=== PATIENT | female | born 1980 | race Caucasian/White ===

== ENCOUNTER → 2023-07-04 19:05 | Outpatient (REF) | payer BC, SELFPAY | LOC: MRI 3T 19:05 | PROVIDERS: ATTENDING PHYSICIAN Specialist; FAMILY PHYSICIAN Physician Assistant | DX: D13.4 Benign neoplasm of liver (principal) | CPT/HCPCS: 74183; A9581 ==

== ENCOUNTER → 2023-08-05 09:24 | Outpatient (REF) | payer BC, SELFPAY ==
[2023-08-05 13:45] LABS: ALT (SGPT) 26 U/L (0-35); AST (SGOT) 23 U/L (14-36); Albumin 4.2 g/dl (3.5-5.0); Alkaline Phosphatase 61 U/L (38-126); Blood Urea Nitrogen 11 mg/dl (7-17); Calcium 9.8 mg/dl (8.4-10.2); Carbon Dioxide 25 mmol/L (22-30); Chloride 103 mmol/L (98-107); Glucose 96 mg/dl (70-99); Magnesium 1.7 mg/dl (1.6-2.3); Potassium 4.3 mmol/L (3.5-5.1); Sodium 136 mmol/L (135-145); Total Bilirubin 0.4 mg/dl (0.2-1.3); Total Protein 6.8 g/dl (6.3-8.2); eGFR > 60.00
[2023-08-05 13:58] LABS: FSH 3.3 mIU/ml; Free T4 0.97 ng/dl (0.78-2.19); Luteinizing Hormone 2.48 mIU/ml
[2023-08-05 14:12] LABS: TSH 0.97 uIU/ml (0.47-4.68)
[2023-08-05 14:17] LABS: Glycohemoglobin (HgbA1c) 5.7 % (4.0-5.6)
[2023-08-08 10:18] LABS: Sex Hormone Binding Globulin 49 nmol/L (25-122); Total Testosterone,Female/Chil 8 ng/dL (9-55)
== END ==
LOC: HWRAD 09:24
PROVIDERS: ATTENDING PHYSICIAN Nurse Practitioner Family; FAMILY PHYSICIAN Physician Assistant
DX: E28.8 Other ovarian dysfunction (principal); R79.89 Other specified abnormal findings of blood chemistry; N92.6 Irregular menstruation, unspecified; L68.0 Hirsutism
CPT/HCPCS: 36415; 76536; 80053; 83001; 83002; 83036; 83735; 84146; 84270; 84402; 84403; 84439; 84443

== ENCOUNTER 2023-12-26 20:25 | Emergency (ER) | payer BC, SELFPAY ==
[2023-12-26 20:31] VITALS: BP 127/70
[2023-12-26] MEDS: ZOFRAN ODT (ORALLY DISINTEGRATING) 4 MG PO (20:38)
[2023-12-26 20:58] LABS: HCG, Serum Qualitative Screen Negative
[2023-12-26 21:03] LABS: % Basophils 0.7 % (0-2); % Eosinophils 1.2 % (0-6); % Immature Granulocytes 0.3 % (0-0.5); % Lymphocytes 33.7 % (20.5-51.1); % Monocytes 4.9 % (1.7-9.3); % Neutrophils 59.2 % (42.2-75.2); Absolute Basophils 0.1 10^3/uL (0-0.2); Absolute Eosinophils 0.1 10^3/uL (0-0.7); Absolute Lymphocytes 4.1 10^3/uL (1.2-3.4); Absolute Monocytes 0.6 10^3/uL (0.1-0.6); Absolute Neutrophils 7.2 10^3/uL (1.4-6.5); Hematocrit 37.8 % (37.0-47.0); Hemoglobin 13.7 g/dL (12.0-16.0); Mean Corp Hgb Conc. 36.2 g/dL (33.0-37.0); Mean Corpuscular Volume 85.5 fL (81.0-99.0); Nucleated Red Blood Cells % 0 %; Platelet Count 467 10^3/uL (130-400); Red Blood Cell Count 4.42 10^6/uL (4.20-5.40); Red Cell Dist. Width 11.9 % (11.5-14.5); White Blood Cell Count 12.1 10^3/uL (4.8-10.8)
[2023-12-26 21:37] LABS: ALT (SGPT) 25 U/L (0-35); AST (SGOT) 26 U/L (14-36); Albumin 4.6 g/dl (3.5-5.0); Alkaline Phosphatase 62 U/L (38-126); Blood Urea Nitrogen 14 mg/dl (7-17); Calcium 9.9 mg/dl (8.4-10.2); Carbon Dioxide 30 mmol/L (22-30); Chloride 100 mmol/L (98-107); Glucose 97 mg/dl (70-99); Lipase 153 U/L (23-300); Potassium 4.4 mmol/L (3.5-5.1); Sodium 142 mmol/L (135-145); Total Bilirubin 0.4 mg/dl (0.2-1.3); Total Protein 7.1 g/dl (6.3-8.2); eGFR > 60.00
[2023-12-26 22:08] VITALS: BMI 32.9
[2023-12-26 22:11] VITALS: BP 105/68
[2023-12-26 22:12] VITALS: BP 105/68
[2023-12-26 23:00] VITALS: BP 108/68
--- NOTE | 2023-12-26 23:55 | ED.GENMED ---
History of Present Illness
<KARLA Fuller - Last Filed: 12/27/23 04:08>
General
Chief Complaint: Abdominal Pain
Source: patient
Exam Limitations: none
Time Seen by Provider: 12/26/23 23:40
History of Present Illness
History of Present Illness:
This is a 43 year old female that comes in with c/o abd pain. States that she has left sided abd pain that started 3 days ago. States that she is nauseated and that the pain is getting worse over the past 8 hours. States that she is nauseated.
States that she is premenopausal and had not had her Menstrual cycle in a while. States that she recently got a period for 4 days and then after this the pain started. States that she has a headache dizziness, diarrhea. Denies any fever, chills,
chest pain, SOB, vomiting, urinary burning.
Past History
<KARLA Fuller - Last Filed: 12/27/23 04:08>
Past History
ED Past Medical History: Psychiatric (Anxiety, ) and Other (Migraines, ADHD, PCOS)
ED Past Surgical History: Other (Lasix eye surgery, Dental surgery, Lumpectomy)
Patient has exhibited threatening behavior?: No
Social History
Tobacco: Former smoker (recently started smoking 10cig per day x 2 wks)
Alcohol: None
Living: with family
<Tom Chapman DO - Last Filed: >
Past History
ED Past Medical History: None, Psychiatric (anxiety, ADHD) and Other (PCOS)
ED Past Surgical History: Other (right breast lumpectomy)
Patient has exhibited threatening behavior?: No
Social History
Tobacco: Smoker (recently started smoking 10cig per day x 2 wks)
Alcohol: Occasional
Drug: None
Personal:
Living: with family
Employment: Other (laid off )
Phy Exam
<KARLA Fuller - Last Filed: 12/27/23 04:08>
General Physical Exam
General Presentation: mild distress
General age: appears stated age
General Skin: warm and dry
General Habitus: normal
General Mental: alert
General Hydration: appears well hydrated
ENT Exam
ENT Exam: TM's normal, pharynx normal and neck supple
Eye Exam
Eye Exam: EOMI
Cardiovascular Exam
Cardiovascular Exam: regular rate/rhythm, no edema, no murmur and normal peripheral pulses
Pulmonary Exam
Pulmonary Exam: lungs clear, no respiratory distress, no rales, chest non tender, no crackles, no rhonchi, no wheezing and no cough
Gastrointestinal Exam
Gastrointestinal Exam: normal bowel sounds, soft, no organomegaly, no pulsatile mass, non distended and tender (Left sided abd tenderness with palpation)
Musculoskeletal Exam
Musculoskeletal Exam: full ROM and no edema
Skin Exam
Skin Exam: normal color, warm/dry, no rash and no petechia
Psychiatric Exam
Psychiatric Exam: normal mood/affect
Course
<KARLA Fuller - Last Filed: 12/27/23 04:08>
Orders/Labs/Results
Orders:
Orders
12/26/23 20:35
Test Result ONCE
12/26/23 20:37
Ondansetron Orally Disint [Zofran Odt (Orally Disintegrating)] 4 mg .ROUTE .STK-MED ONE
12/26/23 20:38
CBC/With Diff [Complete Blood Count/With Diff] Urgent
CMP [Comprehensive Metabolic Panel] Urgent
HCG, Serum Qualitative Screen Urgent
Lipase Urgent
Ondansetron Orally Disint [Zofran Odt (Orally Disintegrating)] 4 mg PO NOW STA
12/26/23 23:48
0.9% Sodium Chloride 1000 ml [Nss] 1,000 ml IV BOLUS
HYDROmorphone [Dilaudid] 1 mg IV NOW STA
Ondansetron Injectable [Zofran] 4 mg IV NOW STA
12/27/23 00:15
CT Abd/pelvis W Iv Cont Urgent
Reason For Exam: left sided abd pain
12/27/23 00:59
US Pelvis Only (non-obstetric) Urgent
Comment:
Reason For Exam: Left lower abd pain
12/27/23 02:53
Ketorolac [Toradol] 30 mg IV NOW STA
12/27/23 03:11
Urinalysis Reflex To Culture Urgent
Date Specimen was Collected: 12/27/23
Time Specimen was Collected: 02:52
Urine Microscopic Reflex Cult Urgent
Urine Culture Urgent
PAN Source: U
Specimen Description:
Date Specimen was Collected: 12/27/23
Time Specimen was Collected: 02:52
12/27/23 04:00
Cephalexin Monohydrate [Keflex] 500 mg PO NOW STA
Abnormal Lab Results
12/26/23 12/27/23
20:38 03:11
WBC 12.1 H 10^3/uL
(4.8-10.8)
Plt Count 467 H 10^3/uL
(130-400)
Absolute Neuts (auto) 7.2 H 10^3/uL
(1.4-6.5)
Absolute Lymphs (auto) 4.1 H 10^3/uL
(1.2-3.4)
Leukocyte Esterase Rfl 1+ A
(Negative)
Urine WBC (Reflex) 16-20 A /HPF
(0-5)
Urine Bacteria (Reflex) Moderate A
(Negative)
12/26/23 20:38
12/26/23 20:38
Leukocytosis, Plt slightly elevated. HCG negative. Urine questionable ( however will treat due to patient symptoms)
Vital Signs
Initial and Last Documented VS:
Initial Vital Signs
Temp Pulse Resp BP Pulse Ox
97.8 F 95 18 127/70 96
12/26/23 20:31 12/26/23 20:31 12/26/23 20:31 12/26/23 20:31 12/26/23 20:31
Last Documented Vital Signs
Temp Pulse Resp BP Pulse Ox
98.7 F 86 18 108/68 96
12/26/23 22:12 12/26/23 22:12 12/26/23 22:12 12/26/23 23:00 12/26/23 23:45
<Tom Chapman, DO - Last Filed: >
Orders/Labs/Results
Orders:
Orders
12/26/23 20:35
Test Result ONCE
12/26/23 20:37
Ondansetron Orally Disint [Zofran Odt (Orally Disintegrating)] 4 mg .ROUTE .STK-MED ONE
12/26/23 20:38
CBC/With Diff [Complete Blood Count/With Diff] Urgent
CMP [Comprehensive Metabolic Panel] Urgent
HCG, Serum Qualitative Screen Urgent
Lipase Urgent
Ondansetron Orally Disint [Zofran Odt (Orally Disintegrating)] 4 mg PO NOW STA
12/26/23 23:48
0.9% Sodium Chloride 1000 ml [Nss] 1,000 ml IV BOLUS
HYDROmorphone [Dilaudid] 1 mg IV NOW STA
Ondansetron Injectable [Zofran] 4 mg IV NOW STA
12/27/23 00:15
CT Abd/pelvis W Iv Cont Urgent
Reason For Exam: left sided abd pain
12/27/23 00:59
US Pelvis Only (non-obstetric) Urgent
Comment:
Reason For Exam: Left lower abd pain
12/27/23 02:53
Ketorolac [Toradol] 30 mg IV NOW STA
12/27/23 03:11
Urinalysis Reflex To Culture Urgent
Date Specimen was Collected: 12/27/23
Time Specimen was Collected: 02:52
Urine Microscopic Reflex Cult Urgent
Urine Culture Urgent
PAN Source: U
Specimen Description:
Date Specimen was Collected: 12/27/23
Time Specimen was Collected: 02:52
12/27/23 04:00
Cephalexin Monohydrate [Keflex] 500 mg PO NOW STA
Abnormal Lab Results
12/26/23 12/27/23
20:38 03:11
WBC 12.1 H 10^3/uL
(4.8-10.8)
Plt Count 467 H 10^3/uL
(130-400)
Absolute Neuts (auto) 7.2 H 10^3/uL
(1.4-6.5)
Absolute Lymphs (auto) 4.1 H 10^3/uL
(1.2-3.4)
Leukocyte Esterase Rfl 1+ A
(Negative)
Urine WBC (Reflex) 16-20 A /HPF
(0-5)
Urine Bacteria (Reflex) Moderate A
(Negative)
12/26/23 20:38
12/26/23 20:38
Vital Signs
Initial and Last Documented VS:
Initial Vital Signs
Temp Pulse Resp BP Pulse Ox
97.8 F 95 18 127/70 96
12/26/23 20:31 12/26/23 20:31 12/26/23 20:31 12/26/23 20:31 12/26/23 20:31
Last Documented Vital Signs
Temp Pulse Resp BP Pulse Ox
98.7 F 86 18 108/68 96
12/26/23 22:12 12/26/23 22:12 12/26/23 22:12 12/26/23 23:00 12/26/23 23:45
<KARLA Fuller - Last Filed: 12/27/23 04:08>
MDM/Problems Addressed
Differential Diagnosis Includes:
Diverticulitis, Colitis, Ovarian cyst
MDM/Problems Addressed:
This is a 43 year old female that comes in with c/co left sided abd pain. States that this started 3 days ago and has continued to get worse.
Will get labs and CT scan.
Back into see patient. Explained that her CT scan is normal. Will get US to r/o any torsion.
US Night hawk- NO acute findings. Uterus appears normal. Endometrial complex measures approximately 5mm in thickness which is within normal limits. No appreciable abnormal endometrial Doppler vascularity. 2.8cm right ovarian cyst. Otherwise ovaries
appear normal with arterial and venous Doppler blood flow Demonstrated bilaterally. NO adnexal mass. No pelvic free fluid.
Back into see patient. Explained that her US is also normal but there is a right ovarian cyst. This does not explained that pain on the left side. Explained that this could be coming from her back as the nerves wrap around to the abd. Encouraged
patient to stay away from Milk and milk products until the diarrhea stops. Follow up with the family doctor. Return with any concern
Chronic conditions affecting care:
PCOS,
Acute Exacerbation and/or Progression of Chronic Illness:
NA
<KARLA Fuller - Last Filed: 12/27/23 04:08>
*Radiology
Radiology exam reviewed: radiology read reviewed (CT night hawk- NO acute findings in the abdomen and pelvis. 4.5 X 4.1cm heterogeneous enhancing focus in the inferior right lobe of the liver (coroneal image 34) Appears to be slightly bigger than on
previous exam 01/09/2020 where it measured approximately 3.8 X 4.1cm (coronal image 32), Relative ), all reviewed NAD by ED Provider (CT cont-stability over time would suggest a benign etiology such a hemangioma or adenoma 1.3cm low attenuation focus
lateral segment left lobe of liver. Apparent discontinuous nodular enhancement along its posterior margin. May signify small hemangioma. Findings could be more definitively ) and other (CT cont- characterized with an oupatient MRI, if not already
performed. Probable small exophytic fibroid in the left pelvis. There may be an additional small exophytic fibroid arising off the right aspect of the fundus, axial image 82 3.3cm probable right ovarian cyst. )
*Pulse Oximetry
Patient hypoxic: no
*EKG
Interpreted by ED Provider?: NA
Rate: EKG- N/A
*Abrading Machine Tender Interpretation
Rate: Abrading Machine Tender- N/A
*Critical Care Note
Total Time (30-74mins, 75-104mins- exclusive of procedures): Not Applicable
ED Attending Note
<Tom Chapman, - Last Filed: >
-
Portions of this chart may have been created with voice recognition software.� Occasional wrong word or��sound alike� substitutions may have occurred due to the inherent limitations of voice recognition software.
Discharge Plan
Departure
Patient Disposition: Home (Routine Discharge)
Date of Disposition: 12/27/23
Time of Disposition: 04:01
Patient with high blood pressure during this ER visit?: No
Condition: Good
Covid-19: Not Applicable
Discharge Problem:
Acute abdominal pain, Diarrhea, Urinary tract infection
Instructions: Diarrhea in teens and adults, Urinary Tract Infection, Adult ED, Abdominal Pain
Prescriptions:
New
ondansetron 4 mg tablet,disintegrating
4 mg PO Q8H PRN (Reason: nausea and vomiting) Qty: 10 0RF
cephalexin 500 mg capsule
500 mg PO BID 7 Days Qty: 14 0RF
No Action
acetaminophen-codeine 300 MG/30 MG tablet
1 tab PO Q4HPRN PRN (Reason: moderate to severe pain) Qty: 30 0RF
Patient Comments:
taken w/previous leg injury >10 years ago
cetirizine [Zyrtec] 10 MG tablet
10 mg PO DAILY
spironolactone 100 MG tablet
1 tab PO DAILY
lorazepam 0.5 MG tablet
0.5 mg PO PRN PRN (Reason: anxiety)
phenylephrine HCl [Fast Acting Nasal] 30 ML spray,non-aerosol
1 puff intranasal BID
metformin 500 MG tablet extended release 24 hr
1 tab PO DAILY
escitalopram oxalate 10 MG tablet
1 tab PO DAILY
melatonin 5 MG tablet
1 tab PO HS
Beyaz 28 Tablet
1 tab PO DAILY
Vyvanse
30 mg PO DAILY
sumatriptan succinate 50 MG tablet
25 mg PO Q2 PRN (Reason: headache) 3 Days Qty: 10 0RF
Rx Instructions:
not exceed >50mg/ dose
pantoprazole [Protonix] 20 MG tablet,delayed release (DR/EC)
40 mg PO DAILY Qty: 30 0RF
Ubrelvy 100 mg tablet
100 mg PO ONCE Qty: 15 0RF
Referrals:
Sue Che PA-C [Family Provider] - Follow up in 2-3 days
Activity Restrictions/Additional Instructions:
As discussed, your blood work shows that your White blood cell count is slightly elevated. Otherwise your blood work is normal. Your CT scan is negative for any acute process. The right lobe of the liver there is a nodule that was seen prior and has
slightly increased. Follow up MRI is suggested. Your US shows that you also have a right ovarian cyst. This would not cause your left sided pain. Please stay away from milk and milk products until the diarrhea stops. Stay on a clear liquid diet for
the next 24 hours and advance your diet as tolerated. Follow up with the family doctor in the next 2-3 days. You do have a urinary tract infection and you have been given your first dose of antibiotic here. A prescription has been sent to your
Pharmacy. Tylenol and Ibuprofen for pain. IF YOU HAVE INCREASED OR CHANGING PAIN, OR YOU HAVE ANY OTHER CONCERNS PLEASE RETURN TO THE EMERGENCY ROOM.
Interventions
Interventions:
*Risk Screen - Suicide Last Done: 12/26/23 22:08
*General Assessment Last Done: 12/26/23 22:08
*Neglect/Abuse Screening Last Done: 12/26/23 22:08
ED- Fall Risk Assessment Last Done: 12/26/23 22:14
*ED COVID-19 Vaccine History Last Done: 12/26/23 22:08
NK-Pjnkrx-Bdatvzrhty Assessment Last Done: 12/26/23 22:13
Discharge Date and Time
Print Language: JAPANESE
[2023-12-27] MEDS: DILAUDID 1 MG IV (00:06)
[2023-12-27] MEDS: ZOFRAN 4 MG IV (00:07)
[2023-12-27] MEDS: NSS 1000 IV (00:07)
[2023-12-27] MEDS: TORADOL 30 MG IV (02:56)
[2023-12-27 03:28] LABS: Urine Albumin Negative (Neg - Trace); Urine Bilirubin Negative (Negative); Urine Character Clear (Clear); Urine Color Yellow; Urine Glucose Negative (Negative); Urine Ketone Negative (Negative); Urine Leukocyte 1+ (Negative); Urine Nitrite Negative (Negative); Urine Occult Blood Negative (Negative); Urine Urobilinogen Negative (Neg - 1+); Urine pH 6.5 (5.0-9.0)
[2023-12-27 03:54] LABS: Urine Red Blood Cell 0-2 /HPF (0-2); Urine Squamous Cell >30 /LPF (Few)
[2023-12-27 03:55] LABS: Urine Bacteria Moderate (Negative); Urine White Cell 16-20 /HPF (0-5)
[2023-12-27] MEDS: KEFLEX 500 MG PO (04:16)
[2023-12-27 04:27] VITALS: BP 105/72
== END 2023-12-27 04:35 | disposition home or self-care (01) ==
LOC: EMR 20:25
PROVIDERS: Clinical Nurse Specialist Family Health; Emergency Medicine; EMERGENCY PHYSICIAN Student in an Organized Health Care Education/Training Program; FAMILY PHYSICIAN Physician Assistant
DX: N39.0 Urinary tract infection, site not specified (principal); R19.7 Diarrhea, unspecified; R10.32 Left lower quadrant pain; R11.0 Nausea; R42 Dizziness and giddiness; R51.9 Headache, unspecified; N83.201 Unspecified ovarian cyst, right side; F41.9 Anxiety disorder, unspecified; F90.9 Attention-deficit hyperactivity disorder, unspecified type; E28.2 Polycystic ovarian syndrome; F17.210 Nicotine dependence, cigarettes, uncomplicated; Z91.030 Bee allergy status; Z91.048 Other nonmedicinal substance allergy status
CPT/HCPCS: 99285; 96374; 96375 ×2; 96361; 74177; 76856; 80053; 81003; 81015; 83690; 84703; 85025; 87086; Q9967

== ENCOUNTER → 2024-02-07 14:42 | Outpatient (REF) | payer BC, SELFPAY | LOC: HWWDC 14:42 | PROVIDERS: ATTENDING PHYSICIAN Obstetrics & Gynecology Gynecology; FAMILY PHYSICIAN Internal Medicine | DX: Z12.31 Encounter for screening mammogram for malignant neoplasm of breast (principal) | CPT/HCPCS: 77063; 77067 ==

== ENCOUNTER → 2024-02-20 08:50 | Outpatient (REF) | payer BC, SELFPAY ==
[2024-02-20 10:10] LABS: % Basophils 0.7 % (0-2); % Eosinophils 1.8 % (0-6); % Immature Granulocytes 0.4 % (0-0.5); % Lymphocytes 29.5 % (20.5-51.1); % Monocytes 5.4 % (1.7-9.3); % Neutrophils 62.2 % (42.2-75.2); Absolute Basophils 0.1 10^3/uL (0-0.2); Absolute Eosinophils 0.2 10^3/uL (0-0.7); Absolute Lymphocytes 2.8 10^3/uL (1.2-3.4); Absolute Monocytes 0.5 10^3/uL (0.1-0.6); Absolute Neutrophils 5.9 10^3/uL (1.4-6.5); Hematocrit 40.6 % (37.0-47.0); Hemoglobin 13.9 g/dL (12.0-16.0); Mean Corp Hgb Conc. 34.2 g/dL (33.0-37.0); Mean Corpuscular Hgb 30.2 pg (27.0-31.0); Mean Corpuscular Volume 88.3 fL (81.0-99.0); Mean Platelet Volume 9.5 fL (7.4-10.4); Nucleated Red Blood Cells % 0 %; Platelet Count 466 10^3/uL (130-400); Red Cell Dist. Width 12.1 % (11.5-14.5); White Blood Cell Count 9.6 10^3/uL (4.8-10.8)
[2024-02-20 10:27] LABS: ALT (SGPT) 24 U/L (0-35); AST (SGOT) 23 U/L (14-36); Albumin 4.7 g/dl (3.5-5.0); Alkaline Phosphatase 49 U/L (38-126); Blood Urea Nitrogen 11 mg/dl (7-17); Calcium 9.9 mg/dl (8.4-10.2); Carbon Dioxide 28 mmol/L (22-30); Chloride 101 mmol/L (98-107); Glucose 91 mg/dl (70-99); HDL Cholesterol 49 mg/dl; LDL Cholesterol, Calculated 136 mg/dl; Potassium 4.5 mmol/L (3.5-5.1); Sodium 140 mmol/L (135-145); Total Bilirubin 0.5 mg/dl (0.2-1.3); Total Cholesterol 219 mg/dl (50-199); Total Protein 7.1 g/dl (6.3-8.2); Triglyceride 171 mg/dl (10-149); Very Low Density Lipoprotein 34 mg/dl (0-30); eGFR > 60.00
[2024-02-20 10:36] LABS: Total Iron Binding Capacity 373 ug/dl (265-497)
[2024-02-20 10:44] LABS: Urine Albumin Trace (Neg - Trace); Urine Bilirubin Negative (Negative); Urine Character Slightly Cloudy (Clear); Urine Color Yellow; Urine Glucose Negative (Negative); Urine Ketone Trace (Negative); Urine Leukocyte 1+ (Negative); Urine Nitrite Negative (Negative); Urine Occult Blood Negative (Negative); Urine Urobilinogen Negative (Neg - 1+)
[2024-02-20 11:27] LABS: Urine Bacteria Few (Negative); Urine Red Blood Cell 0-2 /HPF (0-2); Urine Squamous Cell >30 /LPF (Few)
== END ==
LOC: REG 08:50
PROVIDERS: ATTENDING PHYSICIAN Psychiatry & Neurology Neurology; FAMILY PHYSICIAN Internal Medicine
DX: R79.0 Abnormal level of blood mineral (principal); N39.0 Urinary tract infection, site not specified; F41.1 Generalized anxiety disorder; Z00.00 Encounter for general adult medical examination without abnormal findings; K76.0 Fatty (change of) liver, not elsewhere classified
CPT/HCPCS: 36415; 80053; 80061; 81003; 81015; 83550; 85025; 87086

== ENCOUNTER → 2024-03-07 08:58 | Outpatient (REF) | payer BC, SELFPAY ==
[2024-03-07 10:48] LABS: Ferritin 39.2 ng/ml (6.24-137)
== END ==
LOC: REG 08:58
PROVIDERS: ATTENDING PHYSICIAN Psychiatry & Neurology Neurology; FAMILY PHYSICIAN Nurse Practitioner Adult Health
DX: R79.0 Abnormal level of blood mineral (principal)
CPT/HCPCS: 36415; 82728

== ENCOUNTER 2024-04-01 12:57 | Outpatient (RCR) | payer BC, SELFPAY ==
[2024-03-27 13:15] VITALS: BP 138/83
[2024-03-27] MEDS: VENOFER 110 MG IV (13:30)
[2024-03-27 14:32] VITALS: BP 112/72
[2024-04-01 13:14] VITALS: BP 127/75
[2024-04-01] MEDS: VENOFER 110 MG IV (13:30)
[2024-04-01 14:49] VITALS: BP 111/76
== END 2024-04-03 09:27 | disposition home or self-care (01) ==
LOC: OID 12:57
PROVIDERS: ATTENDING PHYSICIAN Psychiatry & Neurology Neurology; FAMILY PHYSICIAN Internal Medicine
DX: D50.9 Iron deficiency anemia, unspecified (principal); G43.709 Chronic migraine without aura, not intractable, without status migrainosus; G43.109 Migraine with aura, not intractable, without status migrainosus; G43.829 Menstrual migraine, not intractable, without status migrainosus; R79.0 Abnormal level of blood mineral; E53.8 Deficiency of other specified B group vitamins; D13.4 Benign neoplasm of liver
CPT/HCPCS: 96365; J1756

== ENCOUNTER 2024-04-10 13:52 | Outpatient (RCR) | payer BC, SELFPAY ==
[2024-04-10] MEDS: VENOFER 110 MG IV (14:19)
[2024-04-10 14:25] VITALS: BP 108/73
[2024-04-10 15:22] VITALS: BP 134/57
== END 2024-04-13 11:00 | disposition home or self-care (01) ==
LOC: OID 13:52
PROVIDERS: ATTENDING PHYSICIAN Psychiatry & Neurology Neurology; FAMILY PHYSICIAN Internal Medicine
DX: D50.9 Iron deficiency anemia, unspecified (principal); D13.4 Benign neoplasm of liver; R79.0 Abnormal level of blood mineral; E53.8 Deficiency of other specified B group vitamins
CPT/HCPCS: 96365; J1756

== ENCOUNTER → 2024-07-21 08:35 | Outpatient (REF) | payer BC, SELFPAY ==
[2024-07-21 10:35] LABS: Ferritin 91.9 ng/ml (6.24-137)
[2024-07-21 10:50] LABS: Vitamin B12 960 pg/ml (239-931)
== END ==
LOC: REG 08:35
PROVIDERS: ATTENDING PHYSICIAN Nurse Practitioner Adult Health; FAMILY PHYSICIAN Internal Medicine
DX: R79.0 Abnormal level of blood mineral (principal); E53.8 Deficiency of other specified B group vitamins
CPT/HCPCS: 36415; 82607; 82728

== ENCOUNTER → 2024-09-19 07:37 | Outpatient (REF) | payer BC, SELFPAY ==
[2024-09-19 08:59] LABS: % Basophils 0.5 % (0-2); % Eosinophils 1.5 % (0-6); % Immature Granulocytes 0.5 % (0-0.5); % Lymphocytes 32.8 % (20.5-51.1); % Neutrophils 59.7 % (42.2-75.2); Absolute Basophils 0.1 10^3/uL (0-0.2); Absolute Eosinophils 0.1 10^3/uL (0-0.7); Absolute Immature Granulocytes 0.1 10^3/uL (0-0.05); Absolute Monocytes 0.5 10^3/uL (0.1-0.6); Absolute Neutrophils 5.5 10^3/uL (1.4-6.5); Hematocrit 41.5 % (37.0-47.0); Hemoglobin 14.2 g/dL (12.0-16.0); Mean Corp Hgb Conc. 34.2 g/dL (33.0-37.0); Mean Corpuscular Hgb 31.8 pg (27.0-31.0); Mean Corpuscular Volume 92.8 fL (81.0-99.0); Mean Platelet Volume 9.2 fL (7.4-10.4); Nucleated Red Blood Cells % 0 %; Platelet Count 412 10^3/uL (130-400); Red Blood Cell Count 4.47 10^6/uL (4.20-5.40); Red Cell Dist. Width 11.7 % (11.5-14.5); White Blood Cell Count 9.3 10^3/uL (4.8-10.8)
[2024-09-19 09:14] LABS: Glycohemoglobin (HgbA1c) 5.4 % (4.0-5.6)
[2024-09-19 09:18] LABS: Troponin I < 0.012 ng/ml
[2024-09-19 09:19] LABS: ALT (SGPT) 27 U/L (0-35); AST (SGOT) 18 U/L (14-36); Albumin 4.5 g/dl (3.5-5.0); Alkaline Phosphatase 49 U/L (38-126); Blood Urea Nitrogen 11 mg/dl (7-17); Carbon Dioxide 28 mmol/L (22-30); Chloride 106 mmol/L (98-107); Glucose 89 mg/dl (70-99); HDL Cholesterol 59 mg/dl; Iron 125 ug/dl (37-170); LDL Cholesterol, Calculated 147 mg/dl; Magnesium 1.7 mg/dl (1.6-2.3); Potassium 4.4 mmol/L (3.5-5.1); Sodium 140 mmol/L (135-145); Total Bilirubin 0.3 mg/dl (0.2-1.3); Total Cholesterol 247 mg/dl (50-199); Total Protein 7.3 g/dl (6.3-8.2); Triglyceride 207 mg/dl (10-149); Very Low Density Lipoprotein 41 mg/dl (0-30); eGFR > 60.00
[2024-09-19 09:29] LABS: Percent Saturation 36 % (20-50); Total Iron Binding Capacity 345 ug/dl (265-497)
[2024-09-19 09:36] LABS: Beta HCG Quantitative < 2.39 mIU/ml; FSH 3.5 mIU/ml; Free T4 0.94 ng/dl (0.78-2.19); Luteinizing Hormone 0.87 mIU/ml; Progesterone 1.73 ng/ml; Prolactin 16.4 ng/ml (3.0-18.6); Vitamin D, 25-OH*** 43.2 ng/mL (30-80)
[2024-09-19 09:49] LABS: TSH 1.28 uIU/ml (0.47-4.68)
[2024-09-19 09:50] LABS: Estradiol 80.8 pg/ml
[2024-09-19 12:29] LABS: Folate 10.9 ng/ml (2.76-20); Vitamin B12 535 pg/ml (239-931)
[2024-09-19 13:55] LABS: CRP, Ultra Sensitive 4.55 mg/L (0.30-5.00)
[2024-09-20 23:22] LABS: Insulin, Random 14 uIU/mL
[2024-09-21 00:51] LABS: DHEA Sulfate 215 ug/dL (35-256)
[2024-09-21 08:38] LABS: Zinc 82.2 ug/dL (60.0-120.0)
== END ==
LOC: REG 07:37
PROVIDERS: FAMILY PHYSICIAN Internal Medicine
DX: R23.2 Flushing (principal); N92.6 Irregular menstruation, unspecified; E28.2 Polycystic ovarian syndrome; R63.5 Abnormal weight gain; R07.89 Other chest pain
CPT/HCPCS: 36415; 80053; 80061; 82306; 82607; 82627; 82670; 82746; 83001; 83002; 83036; 83498; 83525; 83540; 83550; 83735; 84144; 84146; 84270; 84402; 84403; 84439; 84443; 84484; 84630; 84702; 85025; 86141

== ENCOUNTER → 2024-10-06 18:58 | Outpatient (REF) | payer BC, SELFPAY | LOC: MRI 3T 18:58 | PROVIDERS: ATTENDING PHYSICIAN Specialist; FAMILY PHYSICIAN Internal Medicine | DX: D13.4 Benign neoplasm of liver (principal) | CPT/HCPCS: 74183; A9581 ==

== ENCOUNTER → 2024-10-22 09:57 | Outpatient (REF) | payer BC, SELFPAY ==
[2024-10-23 23:08] LABS: Intrinsic Factor Blocking Ab Negative (Negative)
== END ==
LOC: REG 09:57
PROVIDERS: ATTENDING PHYSICIAN Specialist; FAMILY PHYSICIAN Internal Medicine
DX: E53.8 Deficiency of other specified B group vitamins (principal)
CPT/HCPCS: 82653; 82705; 83516; 86340

== ENCOUNTER → 2025-03-18 19:26 | Outpatient (REF) | payer BC, SELFPAY | LOC: WDC 19:26 | PROVIDERS: ATTENDING PHYSICIAN Obstetrics & Gynecology Gynecology; FAMILY PHYSICIAN Internal Medicine | DX: Z12.31 Encounter for screening mammogram for malignant neoplasm of breast (principal) | CPT/HCPCS: 77063; 77067 ==

== ENCOUNTER 2025-04-19 06:17 | Day surgery (SDC) | payer BC, SELFPAY | END 2025-04-19 09:26 | disposition home or self-care (01) | LOC: GI 06:17 | PROVIDERS: ATTENDING PHYSICIAN Specialist | DX: Z12.11 Encounter for screening for malignant neoplasm of colon (principal); Z83.719 Family history of colon polyps, unspecified | CPT/HCPCS: G0105 ==

== ENCOUNTER → 2025-04-24 09:53 | Outpatient (REF) | payer BC, SELFPAY ==
[2025-04-24 13:20] LABS: Iron 138 ug/dl (37-170)
[2025-04-24 13:30] LABS: Total Iron Binding Capacity 346 ug/dl (265-497)
[2025-04-24 13:56] LABS: Ferritin 73.6 ng/ml (6.24-137)
[2025-04-24 14:10] LABS: Vitamin B12 707 pg/ml (239-931)
== END ==
LOC: REG 09:53
PROVIDERS: ATTENDING PHYSICIAN Nurse Practitioner Adult Health; FAMILY PHYSICIAN Internal Medicine
DX: G43.709 Chronic migraine without aura, not intractable, without status migrainosus (principal); R79.0 Abnormal level of blood mineral; E53.8 Deficiency of other specified B group vitamins
CPT/HCPCS: 36415; 82607; 82728; 83540; 83550